=== PATIENT | female | born 1990 | race African-American/Black ===

== ENCOUNTER 2018-11-04 18:35 | Emergency (ER) | payer MEDICAID ==
[~2018-11-04] VITALS: Ht 157.5 cm; Wt 90.7 kg
[2018-11-04 18:50] VITALS: BP 116/72
--- NOTE | 2018-11-04 18:50 | NUR ---
ED Nurse Note: PT WALKED IN TO ER TODAY FROM HOME. AOX4. PT C/O COUGH, FEVER, SORE THROAT, HEADACHE, CHILLS AND DIARRHEA X LAST NIGHT. PT DENIES NAUSEA OR VOMITING. PT STATES SHE TOOK TYLENOL 325MG AT HOME TODAY. ORAL TEMP AT BEDSIDE: 100.1F. ESSENCE GUAMAN AWARE.
--- NOTE | 2018-11-04 19:03 | NUR ---
ED Nurse Note: REPORT GIVEN TO HUMBLE BURRELL.
--- NOTE | 2018-11-04 19:08 | Emergency Room Report ---
History of Present Illness General Chief Complaint: Flu Like Symptoms Source: Patient Present Illness HPI 28-year-old female with no significant past medical history here complaining of 1 day of generalized body ache, nausea vomiting, and one bout of nonbloody diarrhea. Denies bloody emesis. Also complains of productive cough with yellow phlegm reduction complaining of minimal sore throat and congestion. Patient has been taking Robitussin for symptom relief. Denies recent travel, fever and chills, shortness of breath, chest pain, palpitation, and all other associated symptoms. Denies urinary symptoms. Allergies: Coded Allergies: No Known Allergies (Unverified , 11/04/18) Patient History Past Medical History: see triage record Past Surgical History: unable to obtain Pertinent Family History: none Last Menstrual Period: 11/01/2018 Now: No Immunizations: UTD Reviewed Nursing Documentation: PMH: Agreed; PSxH: Agreed Nursing Documentation-PMH Past Medical History: No History, Except For Review of Systems All Other Systems: negative except mentioned in HPI Physical Exam Vital Signs Date Time Temp Pulse Resp B/P (MAP) Pulse Ox O2 Delivery O2 Flow Rate FiO2 11/04/18 18:46 100.0 93 18 111/68 (82) 94 Room Air Sp02 EP Interpretation: reviewed, normal General Appearance: normal inspection, well appearing, no apparent distress, alert Head: normocephalic, atraumatic Eyes: bilateral eye normal inspection, bilateral eye PERRL ENT: hearing grossly normal, normal pharynx, TMs + canals normal, nasal congestion Neck: normal inspection, full range of motion, supple Respiratory: normal inspection, lungs clear, no rhonchi, no wheezing Cardiovascular #1: normal inspection, regular rate, rhythm, no murmur, normal capillary refill Gastrointestinal: normal inspection, non tender, soft, no mass Genitourinary: no CVA tenderness Musculoskeletal: normal inspection, back normal Neurologic: normal inspection, alert, oriented x3 Psychiatric: normal inspection, judgement/insight normal, memory normal Skin: normal inspection, normal color, no rash, warm/dry Lymphatic: normal inspection, no adenopathy Medical Decision Making PA Attestation All diagnoses and treatment plans were reviewed and discussed with my supervising physician Dr. Navarro Diagnostic Impression: Primary Impression: Viral gastroenteritis Additional Impression: URI (upper respiratory infection) ER Course 28-year-old female with no significant past medical history here complaining of 1 day of generalized body ache, nausea vomiting, and one bout of nonbloody diarrhea. Denies bloody emesis. Also complains of productive cough with yellow phlegm reduction complaining of minimal sore throat and congestion. Patient has been taking Robitussin for symptom relief. Denies recent travel, fever and chills, shortness of breath, chest pain, palpitation, and all other associated symptoms. Denies urinary symptoms. Ddx considered but are not limited to: strep pharyngitis, URI, tonsilitis, peritonsillar absacess, influneza Vital signs: are WNL, pt. is afebrile H&PE are most consistent with: Viral upper respiratory infection, viral gastroenteritis ORDERS: Tamiflu per patient request, Zofran, Phenergan ED INTERVENTIONS: None required at this time. DISCHARGE: At this time pt. is stable for d/c to home. Will provide printed patient care instructions, and any necessary prescriptions. Care plan and follow up instructions have been discussed with the patient prior to discharge. Rest and hydration advised follow-up with primary care provider return to the emergency room with worsening symptoms at this point you have a viral etiology Last Vital Signs Date Time Temp Pulse Resp B/P (MAP) Pulse Ox O2 Delivery O2 Flow Rate FiO2 11/04/18 18:50 100.1 88 16 116/72 96 Room Air Disposition: HOME, SELF-CARE Condition: Stable Scripts Promethazine Hcl (PROMETHAZINE HCL*) 6.25 Mg/5 Ml Syrup 5 ML ORAL Q6H, #120 ML 0 Refills Prov: Rosalio Retana 11/04/18 Ondansetron (Zofran) 4 Mg Tablet 4 MG ORAL Q6H PRN for Nausea & Vomiting, #10 TAB Prov: Rosalio Retana 11/04/18 Oseltamivir Phosphate (Tamiflu) 75 Mg Capsule 75 MG ORAL TWICE A DAY for 5 Days, #10 CAP Prov: Rosalio Retana 11/04/18 Patient Instructions: Upper Respiratory Infection, Adult, [id number], Viral Gastroenteritis, Adult, [id number] Additional Instructions: Take medication as directed follow-up with your primary care provider Rosalio Retana Nov 04, 2018 19:08
[2018-11-04] MEDS ORDERED: TAMIFLU75 MG ORAL (19:09)
[2018-11-04] MEDS ORDERED: PROMETHAZI6.25 MG/1 ORAL (19:09)
[2018-11-04] MEDS ORDERED: ZOFRAN4 M1 ORAL (19:09)
--- NOTE | 2018-11-04 19:17 | NUR ---
ER DISCHARGE NOTE: Patient is cleared to be discharged per ERMD, pt is aox4, on room air, with stable vital signs. pt was given dc and prescription instructions, pt was able to verbalize understanding, pt id band removed without complications. pt is able to ambulate with steady gait. pt took all belongings.
[2018-11-04 19:18] VITALS: BP 120/75
== END 2018-11-04 19:15 | disposition home or self-care (01) ==
LOC: EMR 19:06
DX: K52.9 Noninfective gastroenteritis and colitis, unspecified (principal); J06.9 Acute upper respiratory infection, unspecified
CPT/HCPCS: 99282

== ENCOUNTER 2018-12-08 20:48 | Emergency (ER) | payer MEDICAID ==
[~2018-12-08] VITALS: Ht 157.5 cm; Wt 90.7 kg
[~2018-12-08 20:48] MED LIST: PROMETHAZI6.25 MG/1 ORAL; TAMIFLU75 MG ORAL; ZOFRAN4 M1 ORAL
[2018-12-08] MEDS ORDERED: ALBUTEROL2.5 MG/3 M INH (20:52)
[2018-12-08 20:57] VITALS: BP 134/89
--- NOTE | 2018-12-08 20:57 | NUR ---
ED Nurse Note: pt walked in c/o cough x 2 days, denies fever chills nor other sx, will cont monitor. LS=clear, no sx resp distress noted, will cont monitor.
[2018-12-08] MEDS ORDERED: Ipratropium 0.02% Inh Soln 2.5ml UD HHN ONE (21:00)
[2018-12-08] MEDS ORDERED: Albuterol ud Inhalation HHN ONE (21:00)
[2018-12-08] MEDS ORDERED: ALBUTEROL SULF8.5 GM INH (21:02)
--- NOTE | 2018-12-08 21:02 | Emergency Room Report ---
History of Present Illness General Chief Complaint: Upper Respiratory Illness Source: Patient Present Illness HPI 28-year-old female history of asthma presents with shortness of breath x2 days, patient ran out of her inhaler is requesting a refill and a breathing treatment , her severity is mild, she states her shortness of breath is worsened by smoking, alleviated with the inhaler, no nausea no vomiting no fever no chills, she does endorse a cough. Allergies: Coded Allergies: No Known Allergies (Unverified , 11/04/18) Patient History Past Medical History: see triage record Social History: Reports: smoking Last Menstrual Period: currently on it Now: No : 0 Para: 0 Reviewed Nursing Documentation: PMH: Agreed; PSxH: Agreed Nursing Documentation-PMH Past Medical History: No History, Except For Review of Systems All Other Systems: negative except mentioned in HPI Physical Exam Vital Signs Date Time Temp Pulse Resp B/P (MAP) Pulse Ox O2 Delivery O2 Flow Rate FiO2 12/08/18 20:49 98.6 82 18 134/89 (104) 94 Room Air Sp02 EP Interpretation: reviewed, normal General Appearance: well appearing, no apparent distress, alert Head: normocephalic, atraumatic Eyes: bilateral eye PERRL, bilateral eye EOMI ENT: uvula midline, moist mucus membranes Neck: supple, thyroid normal, supple/symm/no masses Respiratory: no respiratory distress, no retraction, no accessory muscle use, wheezing - Mild Cardiovascular #1: normal peripheral pulses, regular rate, rhythm, no edema, no gallop, no murmur Gastrointestinal: non tender, soft, no guarding, no rebound Musculoskeletal: normal inspection Neurologic: alert, oriented x3 Psychiatric: mood/affect normal Skin: no rash, warm/dry Medical Decision Making Diagnostic Impression: Primary Impression: Asthma attack ER Course 28-year-old female presents with mild wheezing, will give a breathing treatment , will provide patient with a refill of inhaler, return precautions were discussed, patient improved with breathing treatment disposition home Last Vital Signs Date Time Temp Pulse Resp B/P (MAP) Pulse Ox O2 Delivery O2 Flow Rate FiO2 12/08/18 20:57 82 18 Room Air 12/08/18 20:57 98.6 134/89 94 Disposition: HOME, SELF-CARE Condition: Stable Scripts Albuterol Sulfate* (ALBUTEROL SULFATE MDI*) 8.5 Gm Hfa.aer.ad 2 PUFF INH Q6H PRN for Shortness of Breath, #1 EA 0 Refills Prov: Talib Mcgraw MD 12/08/[address]: [facility] Patient Instructions: Asthma Attack Prevention, Asthma, Adult, Taka-so-Xcms Additional Instructions: The patient was provided with discharge instructions, notified to follow-up with a primary care doctor and or specialist in the next 24-48 hours, and to return to the ED if they have worsening of their symptoms. Please note that this report is being documented using DRAGON technology. This can lead to erroneous entry secondary to incorrect interpretation by the dictating instrument. Talib Mcgraw MD Dec 08, 2018 21:02
--- NOTE | 2018-12-08 21:20 | NUR ---
ED Nurse Note: breathing tx done, pt reports feeling better.
[2018-12-08 21:22] VITALS: BP 134/89
--- NOTE | 2018-12-08 21:22 | NUR ---
ED Nurse Note: pt cleared to be d/c per ERMD, pt discharge and aftercare instruction provided w/ prescription, pt education done via discussion and handout, pt advised to follow up with pcp or return to ed if changes in condition, vss, ambulatory w/ steady gait, accompanied by partner, left w/ all belongings.
== END 2018-12-08 21:22 | disposition home or self-care (01) ==
LOC: EMR 21:02
DX: J45.901 Unspecified asthma with (acute) exacerbation (principal); F17.200 Nicotine dependence, unspecified, uncomplicated
CPT/HCPCS: 94640; 94664; 99283

== ENCOUNTER 2018-12-17 20:56 | Emergency (ER) | payer MEDICAID ==
[~2018-12-17] VITALS: Ht 157.5 cm; Wt 90.7 kg
[~2018-12-17 20:56] MED LIST changes: +ALBUTEROL SULF8.5 GM INH; +ALBUTEROL2.5 MG/3 M INH
[2018-12-17 21:10] VITALS: BP 136/91
--- NOTE | 2018-12-17 21:10 | NUR ---
ED Nurse Note: pt ambulated to ED from home c/o N/D, sore throat and cough x3 days. Pt was recently given a inhaler but states its been ineffective. VSS no signs of distress. Pt is A&Ox4
[2018-12-17] MEDS ORDERED: Albuterol/Ipratropium 3ml neb HHN ONE (21:15)
[2018-12-17] MEDS ORDERED: guaiFENesin 100mg/5ml Liq ud ORAL ONE (21:15)
--- NOTE | 2018-12-17 21:16 | Emergency Room Report ---
History of Present Illness General Chief Complaint: Dizziness Source: Patient Present Illness HPI Patient is a 28-year-old female presented after increased cough and difficulty with breathing. Patient recently been seen at this emergency department. She had been given prescription for inhalers as well as oral steroids. Patient reports having continued difficulty with respirations. She had prior history of marijuana smoking. she reports having some nonproductive cough. She denies any vomiting. Allergies: Coded Allergies: No Known Allergies (Unverified , 11/04/18) Patient History Past Medical History: see triage record Last Menstrual Period: 12/09/18 Now: No Reviewed Nursing Documentation: PMH: Agreed; PSxH: Agreed Nursing Documentation-PMH Past Medical History: No History, Except For Review of Systems All Other Systems: negative except mentioned in HPI Physical Exam Vital Signs Date Time Temp Pulse Resp B/P (MAP) Pulse Ox O2 Delivery O2 Flow Rate FiO2 12/17/18 20:59 98.2 85 16 136/91 (106) 96 Room Air General Appearance: well appearing, no apparent distress, alert, obese Head: normocephalic, atraumatic ENT: hearing grossly normal, normal voice Neck: full range of motion, supple Respiratory: no respiratory distress, speaking full sentences, wheezing Cardiovascular #1: normal inspection, no edema Gastrointestinal: normal inspection Musculoskeletal: normal inspection, back normal, normal range of motion Neurologic: normal inspection, alert, oriented x3, responsive, warehouse administrator III-XII nml as tested, normal gait Psychiatric: mood/affect normal Skin: no rash Medical Decision Making Last Vital Signs Date Time Temp Pulse Resp B/P (MAP) Pulse Ox O2 Delivery O2 Flow Rate FiO2 12/17/18 20:59 98.2 85 16 136/91 (106) 96 Room Air Bayron Pacheco MD Dec 17, 2018 21:16
[2018-12-17 21:39] LABS: APPEARANCE,URINE CLEAR; BILIRUBIN, URINE NEGATIVE (NEGATIVE); COLOR,URINE PALE YELLOW; GLUCOSE, URINE (UA) NEGATIVE (NEGATIVE); KETONES,URINE NEGATIVE (NEGATIVE); LEUKOCYTE ESTERASE ,URINE 1+ (NEGATIVE); NITRITE,URINE NEGATIVE (NEGATIVE); PH,URINE 6 (4.5-8.0); PROTEIN,URINE NEGATIVE (NEGATIVE); UROBILINOGEN,URINE NORMAL MG/DL (0.0-1.0)
[2018-12-17] MEDS ORDERED: Acetaminophen 500mg (ES) tab ORAL ONE (22:00)
[2018-12-17 22:15] VITALS: BP 136/91
[2018-12-17] MEDS ORDERED: ALBUTEROL SULF8.5 GM INH (22:15)
[2018-12-17] MEDS ORDERED: ROBITUSSIN100 MG/52 ORAL (22:15)
[2018-12-17] MEDS ORDERED: PREDNISONE20 M1 PO (22:15)
--- NOTE | 2018-12-17 22:15 | NUR ---
ER DISCHARGE NOTE: Patient is cleared to be discharged per ERMD, pt is aox4, on room air, with stable vital signs. pt was given dc and prescription instructions, pt was able to verbalize understanding, pt id band removed. pt is able to ambulate with steady gait. pt took all belongings.
== END 2018-12-17 22:15 | disposition home or self-care (01) ==
LOC: EMR 21:33
DX: R42 Dizziness and giddiness (principal)
CPT/HCPCS: 81003; 81025; 94640; 94664; 99284; J7512; J7620

== ENCOUNTER 2019-01-04 14:51 | Emergency (ER) | payer MEDICAID ==
[~2019-01-04] VITALS: Ht 157.5 cm; Wt 90.7 kg
[~2019-01-04 14:51] MED LIST changes: +PREDNISONE20 M1 PO; +ROBITUSSIN100 MG/52 ORAL
[2019-01-04 15:05] VITALS: BP 103/68
--- NOTE | 2019-01-04 15:05 | NUR ---
ED Nurse Note: C/O SOB WITH CHILL AND DIARRHEA X3 DAYS. PER PT, HER HOME INHALER IS NOT HELPING. HX ASTHMA
[2019-01-04] MEDS ORDERED: Ipratropium 0.02% Inh Soln 2.5ml UD HHN ONE (15:15)
[2019-01-04] MEDS ORDERED: Ketorolac 30mg Inj IV ONE (15:15)
[2019-01-04] MEDS ORDERED: Pseudoephedrine 30mg tab ORAL ONE (15:15)
[2019-01-04] MEDS ORDERED: Solu-MEDROL 125mg Inj IVP ONE (15:15)
--- NOTE | 2019-01-04 15:22 | Emergency Room Report ---
History of Present Illness General Chief Complaint: Asthma Source: Patient Present Illness HPI Patient has been suffering with asthma for several days. She was seen 2 days ago at [facility]. They gave her breathing treatment and discharged her. She is not taking steroids at the time but has had prednisone in the past. Also complaining about pleuritic pain bilaterally. She had some fevers and chills and bilateral ear pain worse on the right-hand side. She rates the pain 10/10 fairly constant and radiating up to the right and side of her head. She denies sore throat. The cough is been mildly productive. This is not her worst attack. She denies calf pain or edema. She feels mildly dehydrated. She was seen December 08 and December 17 for her asthma. No palpitations, nausea, vomiting, diarrhea, dysuria, abdominal pain, joint pain , rashes, depression, anxiety, visual changes. She states she is not at this time. Allergies: Coded Allergies: No Known Allergies (Unverified , 01/04/19) Patient History Past Medical History: see triage record Social History: Denies: smoking - Former Social History Narrative From home Last Menstrual Period: DEC 2018 Reviewed Nursing Documentation: PMH: Agreed; PSxH: Agreed Nursing Documentation-PMH Past Medical History: No History, Except For Hx Asthma: Yes - Bronchitis Review of Systems All Other Systems: negative except mentioned in HPI Physical Exam Vital Signs Date Time Temp Pulse Resp B/P (MAP) Pulse Ox O2 Delivery O2 Flow Rate FiO2 01/04/19 15:00 98.4 88 16 103/68 (80) 93 Room Air Sp02 EP Interpretation: reviewed, abnormal - Interpreted as low by me General Appearance: well appearing, no apparent distress, GCS 15, non-toxic Head: normocephalic Eyes: bilateral eye normal inspection, bilateral eye PERRL, bilateral eye EOMI ENT: normal pharynx, TMs + canals normal, moist mucus membranes Neck: supple Respiratory: chest non-tender, no respiratory distress, no retraction, no accessory muscle use, wheezing, expiration Cardiovascular #1: regular rate, rhythm, no edema Cardiovascular #2: 2+ radial (R) Gastrointestinal: normal bowel sounds, non tender, overweight Genitourinary: no CVA tenderness Musculoskeletal: back normal, gait/station normal, normal range of motion, no calf tenderness, Maicol's Sign negative Neurologic: alert, oriented x3, grossly normal Psychiatric: mood/affect normal Skin: other - Tattoos Medical Decision Making Diagnostic Impression: Primary Impression: Asthma Qualified Codes: J45.41 - Moderate persistent asthma with (acute) exacerbation Additional Impressions: Eosinophilia Ear pain Qualified Codes: H92.01 - Otalgia, right ear ER Course Patient presents with wheezing and chest pain with subjective fever and chills and ear pain. Differential includes asthma exacerbation upper respiratory illness, otitis media amongst others. Patient evaluated with cardiac monitoring and labs. Patient treated with Solu-Medrol, Toradol, breathing treatments and Sudafed. She may need to have antibiotics. Laboratory significant for normal white count however eosinophilia is present CMP normal. Improved with breathing treatment. Repeat exam still shows minimal expiratory wheezing at end. Ear pain resolved. Treatment plan with patient discussed and the need for outpatient follow-up. She was advised to return if worsening. Patient stable for outpatient observation and treatment. Laboratory Tests Test 01/04/19 15:20 01/04/19 16:20 White Blood Count 8.8 K/UL (4.8-10.8) Red Blood Count 4.56 M/UL (4.20-5.40) Hemoglobin 15.1 G/DL (12.0-16.0) Hematocrit 44.5 % (37.0-47.0) Mean Corpuscular Volume 97 FL (80-99) Mean Corpuscular Hemoglobin 33.2 PG (27.0-31.0) H Mean Corpuscular Hemoglobin Concent 34.0 G/DL (32.0-36.0) Red Cell Distribution Width 12.0 % (11.6-14.8) Platelet Count 464 K/UL (150-450) H Mean Platelet Volume 5.1 FL (6.5-10.1) L Neutrophils (%) (Auto) 47.7 % (45.0-75.0) Lymphocytes (%) (Auto) 39.7 % (20.0-45.0) Monocytes (%) (Auto) 4.2 % (1.0-10.0) Eosinophils (%) (Auto) 6.7 % (0.0-3.0) H Basophils (%) (Auto) 1.6 % (0.0-2.0) Sodium Level 141 MMOL/L (136-145) Potassium Level 3.7 MMOL/L (3.5-5.1) Chloride Level 106 MMOL/L (98-107) Carbon Dioxide Level 24 MMOL/L (21-32) Anion Gap 11 mmol/L (5-15) Blood Urea Nitrogen 6 mg/dL (7-18) L Creatinine 0.7 MG/DL (0.55-1.30) Estimate Glomerular Filtration Rate > 60 mL/min (>60) Glucose Level 99 MG/DL (74-106) Calcium Level 9.1 MG/DL (8.5-10.1) Magnesium Level 1.8 MG/DL (1.8-2.4) Total Bilirubin 0.5 MG/DL (0.2-1.0) Aspartate Amino Transferase (AST) 16 U/L (15-37) Alanine Aminotransferase (ALT) 22 U/L (12-78) Alkaline Phosphatase 63 U/L (46-116) Total Protein 7.9 G/DL (6.4-8.2) Albumin 3.7 G/DL (3.4-5.0) Globulin 4.2 g/dL Albumin/Globulin Ratio 0.9 (1.0-2.7) L Urine Color Pale yellow Urine Appearance Clear Urine pH 6 (4.5-8.0) Urine Specific [place] 1.010 (1.005-1.035) Urine Protein Negative (NEGATIVE) Urine Glucose (UA) Negative (NEGATIVE) Urine Ketones Negative (NEGATIVE) Urine Blood Negative (NEGATIVE) Urine Nitrite Negative (NEGATIVE) Urine Bilirubin Negative (NEGATIVE) Urine Urobilinogen Normal MG/DL (0.0-1.0) Urine Leukocyte Esterase Negative (NEGATIVE) Urine HCG, Qualitative Negative (NEGATIVE) Rhythm Strip Diag. Results EP Interpretation: yes Rhythm: NSR, no PVC's, no ectopy Last Vital Signs Date Time Temp Pulse Resp B/P (MAP) Pulse Ox O2 Delivery O2 Flow Rate FiO2 01/04/19 18:20 98.5 79 22 141/83 100 Room Air 2.0 21 Status: improved Disposition: HOME, SELF-CARE Condition: Improved Scripts Prednisone* (PREDNISONE*) 20 Mg Tablet 40 MG ORAL DAILY, #10 TAB Prov: Hu Navarro MD 01/04/19 Guaifenesin/Codeine Phos* (ROBITUSSIN AC*) 118 Ml Liquid 5 ML ORAL Q6H PRN for For Cough, #90 ML 0 Refills Prov: Hu Navarro MD 01/04/19 Albuterol Sulfate* (ALBUTEROL SULFATE MDI*) 8.5 Gm Hfa.aer.ad 2 PUFF INH Q6H, #1 EA 2 Refills Prov: Hu Navarro MD 01/04/19 Hu Navarro MD Jan 04, 2019 15:22
--- NOTE | 2019-01-04 15:30 | NUR ---
ED Nurse Note: blood and urine specimen sent to lab
--- NOTE | 2019-01-04 15:34 | NUR ---
ED Nurse Note: RT AT BEDSIDE
--- NOTE | 2019-01-04 15:40 | NUR ---
ED Nurse Note: PT TOLERATING BREATHING TREATMENT WELL. VSS. WILL CONTINUE TO [place]. PT GIRLFRIEND AT BEDSIDE
[2019-01-04 15:55] LABS: BASOPHILS % (AUTO) 1.6 % (0.0-2.0); EOSINOPHILS % (AUTO) 6.7 % (0.0-3.0); HEMATOCRIT 44.5 % (37.0-47.0); HEMOGLOBIN 15.1 G/DL (12.0-16.0); LYMPHOCYTES % (AUTO) 39.7 % (20.0-45.0); MEAN CORPUSCULAR VOLUME 97 FL (80-99); MONOCYTES % (AUTO) 4.2 % (1.0-10.0); NEUTROPHILS % (AUTO) 47.7 % (45.0-75.0); PLATELET COUNT 464 K/UL (150-450); RED BLOOD COUNT 4.56 M/UL (4.20-5.40); WHITE BLOOD COUNT 8.8 K/UL (4.8-10.8)
[2019-01-04] MEDS: Albuterol ud Inhalation HHN SCH ×3 (15:57→17:18)
[2019-01-04 16:08] LABS: ANION GAP 11 mmol/L (5-15); BLOOD UREA NITROGEN 6 mg/dL (7-18); CALCIUM 9.1 MG/DL (8.5-10.1); CARBON DIOXIDE 24 MMOL/L (21-32); CHLORIDE 106 MMOL/L (98-107); CREATININE 0.7 MG/DL (0.55-1.30); POTASSIUM 3.7 MMOL/L (3.5-5.1); SODIUM 141 MMOL/L (136-145)
[2019-01-04 16:23] VITALS: BP 137/80
[2019-01-04 16:29] LABS: ALANINE AMINOTRANSFERASE 22 U/L (12-78); ALBUMIN 3.7 G/DL (3.4-5.0); ALBUMIN/GLOBULIN RATIO 0.9 (1.0-2.7); ALKALINE PHOSPHATASE 63 U/L (46-116); ASPARTATE AMINO TRANSFERASE 16 U/L (15-37); BILIRUBIN,TOTAL 0.5 MG/DL (0.2-1.0)
[2019-01-04 16:39] LABS: APPEARANCE,URINE CLEAR; BILIRUBIN, URINE NEGATIVE (NEGATIVE); COLOR,URINE PALE YELLOW; GLUCOSE, URINE (UA) NEGATIVE (NEGATIVE); KETONES,URINE NEGATIVE (NEGATIVE); LEUKOCYTE ESTERASE ,URINE NEGATIVE (NEGATIVE); NITRITE,URINE NEGATIVE (NEGATIVE); PH,URINE 6 (4.5-8.0); PROTEIN,URINE NEGATIVE (NEGATIVE); UROBILINOGEN,URINE NORMAL MG/DL (0.0-1.0)
[2019-01-04] MEDS ORDERED: ALBUTEROL SULF8.5 GM INH (18:15)
[2019-01-04] MEDS ORDERED: GUAIFENESIN-CO118 M1 ORAL (18:15)
[2019-01-04] MEDS ORDERED: CHLOR-TRIMETON4 MG PO (18:15)
[2019-01-04] MEDS ORDERED: PREDNISONE20 MG ORAL (18:15)
[2019-01-04 18:20] VITALS: BP 141/83
--- NOTE | 2019-01-04 18:20 | NUR ---
ER DISCHARGE NOTE: Patient is cleared to be discharged per ERMD, pt is aox4, on room air, with stable vital signs. pt was given dc and prescription instructions, pt was able to verbalize understanding, pt id band and iv site removed without complications. pt is able to ambulate with steady gait. pt took all belongings.
== END 2019-01-04 18:20 | disposition home or self-care (01) ==
LOC: EMR 15:50
DX: J45.41 Moderate persistent asthma with (acute) exacerbation (principal); H92.01 Otalgia, right ear; D72.1 Eosinophilia
CPT/HCPCS: 36415; 80053; 81003; 81025; 83735; 85025; 94640; 94664; 96361; 96374; 96375; 99284; J1885; J2930

== ENCOUNTER 2019-01-06 00:02 | Emergency (ER) | payer MEDICAID ==
[~2019-01-06] VITALS: Ht 157.5 cm; Wt 90.7 kg
[~2019-01-06 00:02] MED LIST changes: +CHLOR-TRIMETON4 MG PO; +GUAIFENESIN-CO118 M1 ORAL; +PREDNISONE20 MG ORAL
[2019-01-06 00:14] VITALS: BP 126/81
--- NOTE | 2019-01-06 00:15 | NUR ---
ED Nurse Note: Pt ambulated to ED from home c/o SOB and wheezing since 1999. Pt was seen yesterday in this ED for the same problem, reports inhaler is ineffective. Spo2 95% on RA
[2019-01-06 00:45] VITALS: BP 126/81
--- NOTE | 2019-01-06 00:45 | NUR ---
ED Nurse Note: Pt left without being seen.
--- NOTE | 2019-01-06 00:55 | Emergency Room Report ---
History of Present Illness General Chief Complaint: Upper Respiratory Illness Source: Patient Present Illness HPI This is a 28-year-old female with a history of asthma. She was just here the other day. She is been to [facility] already for the same thing. She came in complaining of shortness of breath and wheezing. Set her inhaler and prednisone was not helping. After going to the room, she left without me seeing her. I was seeing another patient was here prior to her. Allergies: Coded Allergies: No Known Allergies (Unverified , 01/04/19) Patient History Past Medical History: see triage record, old chart reviewed, asthma Past Surgical History: none Pertinent Family History: none Social History: Denies: smoking Last Menstrual Period: 12/06/18 Now: No Immunizations: other Reviewed Nursing Documentation: PMH: Agreed; PSxH: Agreed Nursing Documentation-PMH Past Medical History: No History, Except For Hx Asthma: Yes Physical Exam Vital Signs Date Time Temp Pulse Resp B/P (MAP) Pulse Ox O2 Delivery O2 Flow Rate FiO2 01/06/19 00:07 98.6 94 16 126/81 (96) 92 Room Air Medical Decision Making Diagnostic Impression: Primary Impression: Asthma Qualified Codes: J45.909 - Unspecified asthma, uncomplicated Last Vital Signs Date Time Temp Pulse Resp B/P (MAP) Pulse Ox O2 Delivery O2 Flow Rate FiO2 01/06/19 00:14 94 16 Room Air 01/06/19 00:14 98.6 126/81 92 Status: unchanged Disposition: ELOPED Condition: Stable José Peña MD Jan 06, 2019 00:55
== END 2019-01-06 00:45 | disposition left against medical advice (07) ==
LOC: EMR 00:22
DX: Z53.21 Procedure and treatment not carried out due to patient leaving prior to being seen by health care provider (principal)

== ENCOUNTER 2019-03-02 22:21 | Emergency (ER) | payer MEDICAID ==
[~2019-03-02] VITALS: Ht 157.5 cm; Wt 90.7 kg
[~2019-03-02 22:21] MED LIST changes: +ALBUTEROL2.5 MG/3 M HHN
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
[2019-03-02 22:31] VITALS: BP 140/98
--- NOTE | 2019-03-02 22:31 | NUR ---
ED Nurse Note: pt denies nausea or vomiting
[2019-03-02] MEDS ORDERED: Acetaminophen 500mg (ES) tab ORAL ONE (23:00)
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
--- NOTE | 2019-03-02 23:59 | NUR ---
ED Nurse Note: xray at bedside
[2019-03-03] MEDS ORDERED: IBUPROFEN600 MG ORAL (00:17)
[2019-03-03 00:22] VITALS: BP 132/84
--- NOTE | 2019-03-03 00:23 | NUR ---
ER DISCHARGE NOTE: Patient is cleared to be discharged per ERMD, pt is aox4, on room air, with stable vital signs. pt was given dc and prescription instructions, pt was able to verbalize understanding, pt id band was removed. pt is able to ambulate with steady gait. pt took all belongings.
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
== END 2019-03-03 00:23 | disposition home or self-care (01) ==
LOC: EMR 22:38
DX: J45.909 Unspecified asthma, uncomplicated (principal); S00.33XA Contusion of nose, initial encounter; Y04.8XXA Assault by other bodily force, initial encounter; Y92.9 Unspecified place or not applicable
CPT/HCPCS: 70160; 81025; Z7502; 99283

== ENCOUNTER 2020-02-02 10:23 | Emergency (ER) | payer MEDICAID ==
[~2020-02-02] VITALS: Ht 157.5 cm; Wt 99.8 kg
[~2020-02-02 10:23] MED LIST changes: +IBUPROFEN600 MG ORAL
[2020-02-02] MEDS ORDERED: Pseudoephedrine 30mg tab ORAL ONE (10:45)
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
[2020-02-02 11:00] VITALS: BP 114/74
--- NOTE | 2020-02-02 11:02 | NUR ---
ED Nurse Note: pt presents to ED c/o sore throat and SOB since this AM, states she thinks it could be an asthma exacerbation. pt is refusing COVID testing at this time, explained to pt that we could not give her a breathing treatment without COVID results, pt is aware and would still like to refuse at this time. will take PO meds
--- NOTE | 2020-02-02 11:09 | NUR ---
ED Nurse Note: xray at pt bedside
[2020-02-02] MEDS ORDERED: ATROVENT HFA12.9 GM IH (11:16)
[2020-02-02] MEDS ORDERED: PSEUDOEPHEDRINE60 MG PO (11:16)
[2020-02-02] MEDS ORDERED: ZITHROMAX250 MG ORAL (11:16)
[2020-02-02] MEDS ORDERED: ALBUTEROL2.5 MG/3 M HHN (11:16)
[2020-02-02 11:20] VITALS: BP 114/74
--- NOTE | 2020-02-02 11:20 | NUR ---
ER DISCHARGE NOTE: Patient is cleared to be discharged per ERMD, pt is aox4, on room air, with stable vital signs. pt was given dc and prescription instructions, she was provided with refill of asthma meds as requested. pt was able to verbalize understanding, pt id band removed without complications. pt is able to ambulate with steady gait. pt took all belongings.
--- NOTE | 2020-02-02 11:40 | Diagnostic Imaging Report ---
Procedure: XRAY Chest 1v Reason for study: Reason For Exam: COUGH Comparison films: None. FINDINGS: A single one view chest is obtained. Vascularity is normal. The lung severino are clear bilaterally. Cardiac and mediastinal silhouette are within normal limits. CP angles are sharp. The bony thorax appear unremarkable. IMPRESSION: NO ACUTE CARDIOPULMONARY DISEASE.
[2020-02-03] MEDS ORDERED: VENTOLIN HFA18 GM INH (17:51)
== END 2020-02-02 11:20 | disposition home or self-care (01) ==
LOC: EMR 10:40
DX: J45.909 Unspecified asthma, uncomplicated (principal); J06.9 Acute upper respiratory infection, unspecified; E66.3 Overweight; Z68.41 Body mass index [BMI] 40.0-44.9, adult; H92.02 Otalgia, left ear
CPT/HCPCS: 71045; Z7502; 99283

== ENCOUNTER 2020-04-11 07:50 | Emergency (ER) | payer MEDICAID ==
[~2020-04-11] VITALS: Ht 157.5 cm; Wt 104.3 kg
[~2020-04-11 07:50] MED LIST changes: +ATROVENT HFA12.9 GM IH; +PSEUDOEPHEDRINE60 MG PO; +VENTOLIN HFA18 GM INH; +ZITHROMAX250 MG ORAL
[2020-04-11 08:02] VITALS: BP 139/91
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
[2020-04-11] MEDS ORDERED: IBUPROFEN600 M1 ORAL (09:02)
[2020-04-11] MEDS ORDERED: NORCO 5-325 TA1 EAC1 ORAL (09:02)
--- NOTE | 2020-04-11 14:53 | Diagnostic Imaging Report ---
Indication: Pain, trauma Technique: 3 views of the right hand Comparison: none Findings: There is a fracture of the base of the first metacarpal. No other acute fractures. No dislocation. The joint spaces are preserved Impression: Positive for first metacarpal base fracture. This agrees with the preliminary interpretation reported by the emergency room physician in the electronic medical record
== END 2020-04-11 09:17 | disposition home or self-care (01) ==
LOC: EMR 08:39
DX: S62.514A Nondisplaced fracture of proximal phalanx of right thumb, initial encounter for closed fracture (principal); J45.909 Unspecified asthma, uncomplicated; Y09 Assault by unspecified means; Y93.9 Activity, unspecified; Y92.9 Unspecified place or not applicable
CPT/HCPCS: 29130; 73130; Z7502; 99283